=== PATIENT | male | born 2000 | race Hispanic/Latino ===

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

== ENCOUNTER 2023-08-03 07:52 | Outpatient (RCR) | payer OTHER ==
[~2023-08-03 07:52] MED LIST: ACETAMINOPHEN650 MG PO; IBUPROFEN400 MG PO; MULTI-VITAMIN1 EACH PO
== END 2023-08-31 ==
LOC: PT 07:52
PROVIDERS: ATTEND Orthopaedic Surgery
DX: Z47.89 Encounter for other orthopedic aftercare (principal); M25.561 Pain in right knee